=== PATIENT | female | born 1965 | race Caucasian/White ===

== ENCOUNTER 2017-06-28 19:01 | Inpatient (IN) | payer OTHER ==
[~2017-06-28] VITALS: Ht 157.5 cm; Wt 62.6 kg
[2017-06-28] MEDS: NACL 0.9% 1,000 ML IV SCH (01:00)
[2017-06-28 19:08] VITALS: BP 145/80
--- NOTE | 2017-06-28 19:13 | NUR ---
PATIENT AMBULATED TO ER BED 11.
--- NOTE | 2017-06-28 19:15 | NUR ---
PATIENT IS A 51 Y/O FEMALE WHO PRESENTS TO THE ED C/O ABD PAIN. PT STATES THAT IT HAS BEEN BOTHERING HER FOR 1 MONTH. PT REPORTS 10/10 ACHING EPIGASTRIC PAIN THAT DOES NOT RADIATE. PT DENIES CP, SOB, REPORTS N/V/D. PT AAOX4, RR EVEN/UNLABORED, LUNG SOUNDS CLEAR BL. PT REPOSITIONED FOR COMFORT, BED IN LOWEST POSITION. ER MD DR. MANNING NOTIFIED. WILL CONTINUE TO MONITOR.
[2017-06-28] MEDS ORDERED: NACL 0.9% 1,000 ML IV ONE ×2 (20:00→21:10)
[2017-06-28] MEDS ORDERED: LEVOFLOXACIN 500 MG/D5W PREMIX 100 ML IV ONE (20:00)
[2017-06-28] MEDS ORDERED: MORPHINE SULFATE 4 MG/ML SYR IVP ONE (20:00)
[2017-06-28] MEDS ORDERED: ONDANSETRON 4 MG/2 ML VIAL IVP ONE (20:00)
[2017-06-28 20:22] LABS: APPEARANCE,URINE CLEAR (CLEAR); BILIRUBIN,URINE NEGATIVE (NEGATIVE); BLOOD, URINE NEGATIVE (NEGATIVE); COLOR,URINE YELLOW (YELLOW); LEUKOCYTE ESTERASE ,URINE NEGATIVE (NEGATIVE); NITRITE, URINE NEGATIVE (NEGATIVE); PH,URINE 5.5 (5.0-9.0); UGLUCOSE 3+ (NEGATIVE)
[2017-06-28 20:23] LABS: BASOPHILS # (AUTO) 0.1 K/uL (0.00-0.22); BASOPHILS % (AUTO) 0.7 % (0.0-2.0); EOSINOPHILS # (AUTO) 0.1 K/uL (0-0.4); EOSINOPHILS % (AUTO) 0.7 % (0.0-4.0); HEMOGLOBIN 15.6 g/dL (12.0-16.0); LYMPHOCYTES % (AUTO) 25.6 % (20.5-51.1); MEAN CORPUSCULAR HEMOGLOBIN 27 pg (27-31); MEAN CORPUSCULAR HGB CONC 33 g/dL (33-37); MEAN CORPUSCULAR VOLUME 83.2 fL (80-94); MONOCYTES # (AUTO) 0.4 K/uL (0.8-1.0); NEUTROPHILS # (AUTO) 5.3 K/uL (1.8-7.7); PLATELET COUNT (AUTO) 238 K/uL (140-450); RED BLOOD CELL COUNT(AUTO) 5.76 MIL/uL (4.20-5.40); RED CELL DISTRIBUTION WIDTH 13.2 % (11.6-13.7); WHITE BLOOD COUNT (AUTO) 7.8 K/uL (4.8-10.8)
[2017-06-28 20:38] LABS: ALBUMIN 3.5 g/dL (3.4-5.0); ANION GAP 21.2 (8-16); CARBON DIOXIDE 22.1 mmol/L (21-32); CREATININE 0.9 mg/dL (0.6-1.3); POTASSIUM 4.3 mmol/L (3.5-5.1); TOTAL BILIRUBIN 0.7 mg/dL (0.0-1.0)
[2017-06-28] MEDS ORDERED: INSULIN REGULAR, HUMAN 100 UNIT/ML VIAL IVP ONE ×3 (21:10→22:30)
--- NOTE | 2017-06-28 22:47 | NUR ---
SPOKE TO EL FROM [employer] REGARDING PT ADMISSION.
--- NOTE | 2017-06-28 23:37 | NUR ---
CALLED TELE FOR BED-PATIENT ACCOUNT SPECIALIST TESS WILL CALL BACK
[2017-06-28] MEDS ORDERED: DOCUSATE SODIUM 100 MG GELCAP PO PRN (23:40)
[2017-06-28] MEDS ORDERED: ONDANSETRON 4 MG/2 ML VIAL IM/IVP PRN (23:40)
[2017-06-28] MEDS ORDERED: HYDROcodone/APAP 7.5/325 MG 1 TAB PO PRN (23:40)
--- NOTE | 2017-06-28 23:55 | NUR ---
Patient will be admitted to care of DR. TRAN. Admited to TELE. Will go to room 105B. Belongings list completed. Report to [facility].
[2017-06-29 00:05] VITALS: BP 115/71
--- NOTE | 2017-06-29 00:05 | NUR ---
PATIENT ADMITTED TO THE UNIT FROM ER. PATIENT IS AOX4. NO SIGNS AND SYMPTOMS OF DISTRESS NOTED. COMPLAINS OF 5/10 ABDOMINAL PAIN. IV SITE NOTED ON RIGHT AC. PATIENT IS ON ROOM AIR. PLAN OF CARE DISCUSSED WITH PATIENT. PATIENT VERBALIZED UNDERSTANDING. PATIENT REQUESTED INFO ON DIABETIC DIET. EDUCATIONAL HANDOUT GIVEN. BED IN LOWEST POSITION. SIDE RAILS UP AND CALL LIGHT WITHIN REACH. WILL CONTINUE TO MONITOR.
[2017-06-29 00:30] LABS: BENZODIAZEPINE, URINE NEG. ng/mL (NEG <=200); CANNABINOID, URINE NEG. ng/mL (NEG <=50); COCAINE, URINE NEG. ng/mL (NEG <=300); OPIATE, URINE NEG. ng/mL (NEG <=2000); PHENCYCLIDINE SCREEN,URINE NEG. ng/mL (NEG <=25)
[2017-06-29 00:32] LABS: PROTHROMBIN TIME 9.9 secs (10.8-13.4)
[2017-06-29 00:32] LABS: BARBITURATE, URINE NEG. ng/ml (NEG <=200)
[2017-06-29 00:37] LABS: CHOL/HDL RATIO 2.3 (1-4.5); FREE T4 (FREE THYROXINE) 1.34 ng/dL (0.76-1.46); MAGNESIUM 1.9 mg/dL (1.8-2.4); PHOSPHORUS 4.1 mg/dL (2.5-4.9)
--- NOTE | 2017-06-29 01:00 | NUR ---
PATIENT SEEN BY DR. MAX
[2017-06-29] MEDS ORDERED: DEXTROSE 50% 50 ML SYR IVP PRN (01:05)
[2017-06-29] MEDS ORDERED: PNEUMOCOCCAL VACCINE 23 MCG/0.5 ML VIAL IMVAC SCH (01:45)
[2017-06-29] MEDS ORDERED: KETOROLAC 30 MG/ML VIAL IM PRN (01:55)
[2017-06-29] MEDS: KETOROLAC 30 MG/ML VIAL IVP PRN ×3 (02:08→19:58)
--- NOTE | 2017-06-29 03:23 | NUR ---
CHECKED ON PATIENT. PATIENT IS ASLEEP. NO SIGNS AND SYMPTOMS OF DISTRESS NOTED. BREATHING EVEN AND UNLABORED. WILL CONTINUE TO MONITOR.
[2017-06-29 04:00] VITALS: BP 135/78
--- NOTE | 2017-06-29 05:20 | NUR ---
PATIENT GOT XRAYS DONE AT BEDSIDE
[2017-06-29] MEDS: ACETAMINOPHEN 325 MG TAB PO PRN (05:32)
[2017-06-29] MEDS: INSULIN LISPRO SLIDING SCALE 100 UNITS/ML VIAL SUBQ PRN ×4 (05:47→20:12)
[2017-06-29] MEDS: PANTOPRAZOLE 40 MG TABEC PO SCH (05:52)
[2017-06-29] MEDS: NACL 0.9% 1,000 ML IV SCH ×4 (05:55→18:46)
[2017-06-29] MEDS: BLOOD GLUCOSE MONITORING 1 DEV DEV FS SCH ×4 (06:40→20:10)
--- NOTE | 2017-06-29 07:16 | NUR ---
PATIENT REPORT GIVEN TO MORNING NURSE AT BEDSIDE. PATIENT IS IN STABLE CONDITION
--- NOTE | 2017-06-29 07:21 | NUR ---
RECEIVED REPORT FOR THE PT FROM WOODS SUPERINTENDENT NURSE. PT IS AWAKE AND LYING ON THE BED AND AN ULTRASOUND ON GOING. NO SIGN OF DISTRESS NOTED. CALL LIGHT WITHIN REACH, SIDE RAILS ARE UP. WILL MONITOR.
[2017-06-29 07:23] LABS: BASOPHILS % (AUTO) 0.5 % (0.0-2.0); EOSINOPHILS # (AUTO) 0.1 K/uL (0-0.4); EOSINOPHILS % (AUTO) 1.5 % (0.0-4.0); HEMATOCRIT 42.7 % (36-48); HEMOGLOBIN 13.6 g/dL (12.0-16.0); LYMPHOCYTES # (AUTO) 2.6 K/uL (2.5-16.5); LYMPHOCYTES % (AUTO) 29.2 % (20.5-51.1); MEAN CORPUSCULAR HEMOGLOBIN 27 pg (27-31); MEAN CORPUSCULAR HGB CONC 32 g/dL (33-37); MEAN CORPUSCULAR VOLUME 84.3 fL (80-94); MONOCYTES # (AUTO) 0.6 K/uL (0.8-1.0); MONOCYTES % (AUTO) 6.4 % (1.7-9.3); NEUTROPHILS # (AUTO) 5.6 K/uL (1.8-7.7); NEUTROPHILS % (AUTO) 62.4 % (42.2-75.2); PLATELET COUNT (AUTO) 231 K/uL (140-450); RED BLOOD CELL COUNT(AUTO) 5.06 MIL/uL (4.20-5.40); RED CELL DISTRIBUTION WIDTH 13.7 % (11.6-13.7)
--- NOTE | 2017-06-29 07:40 | NUR ---
PT IS AWAKE, LYING ON THE BED, VITAL SIGNS TAKEN, NO SIGN OF DISTRESS NOTED. CALL LIGHT WITHIN REACH. WILL MONITOR.
[2017-06-29 07:47] LABS: ANION GAP 14.8 (8-16); CARBON DIOXIDE 23.8 mmol/L (21-32); CREATININE 0.8 mg/dL (0.6-1.3); POTASSIUM 4.6 mmol/L (3.5-5.1)
[2017-06-29 07:49] LABS: MAGNESIUM 1.6 mg/dL (1.8-2.4); PHOSPHORUS 3.2 mg/dL (2.5-4.9)
[2017-06-29 08:00] VITALS: BP 128/72
--- NOTE | 2017-06-29 08:13 | NUR ---
PT'S MAGNESIUM RESULT OF 1.[address] CAMARILLO AND DR. FLANAGAN, BOTH DOCTORS SAID " OK".
[2017-06-29] MEDS ORDERED: MAG SULF 2000 MG/WATER PREMIX 50 ML IV SCH (09:00)
--- NOTE | 2017-06-29 09:00 | NUR ---
PT"S IV SOLUTION OF 0.9% NACL WAS STARTED WITH A RATE OF 150ML/HR ON THE RIGHT AC. NO SIGN OF DISTRESS NOTED ON THE PT. CALL LIGHT WITHIN REACH. WILL MONITOR.
--- NOTE | 2017-06-29 09:24 | NUR ---
PT WAS ASLEEP AND LYING ON THE BED, STARTED ON MAGNESIUM SULFATE 50ML AT A RATE OF 25ML/HR, ORDERED BY THE DOCTOR FOR A MAGNESIUM VALUE OF 1.6. NO SIGN OF DISTRESS NOTED ON THE PT. WILL MONITOR.
--- NOTE | 2017-06-29 10:05 | NUR ---
RECEIVED ORDER FROM THE DOCTOR TO PUT PT ON NPO EXCEPT MEDS,ORDERED ACKNOWLEDGED AND SIGN WAS PLACED ON THE DOOR OF THE PT'S ROOM. INFORMED PT OF THE ORDER FOR NPO AND PT VERBALIZED ACCEPTANCE OF THE ORDER. NO SIGN OF DISTRESS NOTED ON THE PT, CALL LIGHT WITHIN REACH. MAGNESIUM SULFATE ON IV PIGGYBACK STILL INFUSING. WILL MONITOR.
--- NOTE | 2017-06-29 11:45 | NUR ---
PT IS AWAKE AND LYING ON THE BED, BLOOD GLUCOSE CHECK DONE AND RESULT IS 336. HUMALOG INSULIN OF 8 UNITS GIVEN SUBQ IN THE LEFT UPPER ARM.
--- NOTE | 2017-06-29 11:58 | NUR ---
PT IS AWAKE LYING ON THE BED, PAIN MEDICATION GIVEN FOR A PAIN RATE OF 6. PT TOLERATED IT AND NO SIGN OF DISTRESS NOTED. WILL REASSESS PAIN IN AN HOUR. WILL MONITOR
[2017-06-29 12:00] VITALS: BP 106/67
--- NOTE | 2017-06-29 12:12 | NUR ---
MANAGER SKILLED OPAL CAME AND EXTRACTED BLOOD FROM THE PT FOR THE BMP ORDERED AT 1200. NO SIGN OF DISTRESS NOTED ON THE PT. WILL MONITOR.
[2017-06-29 12:24] LABS: ANION GAP 13.1 (8-16); CARBON DIOXIDE 24.8 mmol/L (21-32); CREATININE 0.7 mg/dL (0.6-1.3); POTASSIUM 3.9 mmol/L (3.5-5.1)
--- NOTE | 2017-06-29 14:10 | NUR ---
PT'S ORDER FOR NPO WAS CANCELLED AND [facility]. ORDER ACKNOWLEDGED.
[2017-06-29] MEDS ORDERED: metFORMIN 500 MG TAB PO SCH (15:00)
--- NOTE | 2017-06-29 15:43 | NUR ---
PT IS AWAKE SEATED ON THE BED, MEDICATIONS GIVEN AND PT TOLERATED IT. NO SIGN OF DISTRESS NOTED. PATIENT TEACHING ON DIABETIC DIET GIVEN. CALL LIGHT WITHIN REACH. WILL MONITOR.
[2017-06-29 16:00] VITALS: BP 116/80
[2017-06-29] MEDS: METOCLOPRAMIDE 10 MG/2 ML INJ VIAL IVP SCH ×2 (18:47→20:10)
--- NOTE | 2017-06-29 19:10 | NUR ---
ENDORSED PT FOR CONTINUITY OF CARE TO BENCH BORING MACHINE OPERATOR NURSE. PT IS AWAKE AND SEATED ON THE BED AND STABLE AT THIS TIME.
--- NOTE | 2017-06-29 19:11 | NUR ---
PATIENT REPORT RECEIVED FROM MORNING NURSE AT BEDSIDE. PATIENT IS CURRENTLY ASLEEP. BUT EASY TO AWAKEN. NO SIGNS AND SYMPTOMS OF DISTRESS NOTED. PATIENT IS ON ROOM AIR. IV SITE NOTED ON RIGHT AC, IVF INFUSING WELL. BED IN LOWEST POSITION, SIDE RAILS UP AND CALL LIGHT WITHIN REACH. WILL CONTINUE TO MONITOR.
[2017-06-29 20:00] VITALS: BP 98/60
[2017-06-29] MEDS ORDERED: INSULIN LANTUS 100 UNITS/ML 10 ML VIAL SUBQ SCH (21:00)
--- NOTE | 2017-06-29 21:00 | NUR ---
REGLAN NOT ADMINISTERED B/C TOO CLOSE TO PREVIOUS DOSE. PREVIOUS DOSE ADMINISTERED LATE.
--- NOTE | 2017-06-29 22:00 | NUR ---
CHECKED ON PATIENT. PATIENT IS ASLEEP. NO SIGNS AND SYMPTOMS OF DISTRESS NOTED. BREATHING EVEN AND UNLABORED. WILL CONTINUE TO MONITOR.
[2017-06-30] VITALS (7 sets, daily range): BP systolic 99–133; BP diastolic 57–76
--- NOTE | 2017-06-30 | NUR ---
CHECKED ON PATIENT. PATIENT IS ASLEEP. NO SIGNS AND SYMPTOMS OF DISTRESS NOTED. BREATHING EVEN AND UNLABORED. WILL CONTINUE TO MONITOR.
[2017-06-30] MEDS: NACL 0.9% 1,000 ML IV SCH ×2 (02:33→16:26)
--- NOTE | 2017-06-30 03:00 | NUR ---
CHECKED ON PATIENT. PATIENT IS ASLEEP. NO SIGNS AND SYMPTOMS OF DISTRESS NOTED. BREATHING EVEN AND UNLABORED. WILL CONTINUE TO MONITOR.
[2017-06-30] MEDS: BLOOD GLUCOSE MONITORING 1 DEV DEV FS SCH ×4 (06:02→20:42)
[2017-06-30] MEDS: INSULIN LISPRO SLIDING SCALE 100 UNITS/ML VIAL SUBQ PRN ×4 (06:08→21:10)
[2017-06-30] MEDS: PANTOPRAZOLE 40 MG TABEC PO SCH (06:36)
[2017-06-30] MEDS: METOCLOPRAMIDE 10 MG/2 ML INJ VIAL IVP SCH ×4 (06:36→20:37)
[2017-06-30 06:40] LABS: BASOPHILS % (AUTO) 0.6 % (0.0-2.0); EOSINOPHILS # (AUTO) 0.1 K/uL (0-0.4); EOSINOPHILS % (AUTO) 2.4 % (0.0-4.0); HEMOGLOBIN 12.3 g/dL (12.0-16.0); LYMPHOCYTES # (AUTO) 2.6 K/uL (2.5-16.5); LYMPHOCYTES % (AUTO) 41.5 % (20.5-51.1); MEAN CORPUSCULAR HEMOGLOBIN 27 pg (27-31); MEAN CORPUSCULAR HGB CONC 33 g/dL (33-37); MEAN CORPUSCULAR VOLUME 82.7 fL (80-94); MONOCYTES # (AUTO) 0.4 K/uL (0.8-1.0); MONOCYTES % (AUTO) 6.7 % (1.7-9.3); NEUTROPHILS % (AUTO) 48.8 % (42.2-75.2); PLATELET COUNT (AUTO) 190 K/uL (140-450); RED CELL DISTRIBUTION WIDTH 13.2 % (11.6-13.7); WHITE BLOOD COUNT (AUTO) 6.2 K/uL (4.8-10.8)
--- NOTE | 2017-06-30 07:12 | NUR ---
PATIENT REPORT GIVEN TO MORNING NURSE AT BEDSIDE. PATIENT IS IN STABLE CONDITION.
--- NOTE | 2017-06-30 07:12 | NUR ---
ASSUMED CONTINUITY OF CARE. NO SIGNS AND SYMPTOMS OF ACUTE DISTRESS NOTICED. INITIAL ASSESSMENT DONE. EXPLAINED DIAGNOSIS, PLAN OF CARE, PAIN MANAGEMENT TEACHING, USE OF CALL LIGHT/BED/TV/BATHROOM. VERBALIZED UNDERSTANDING. CALL LIGHT WITHIN REACH.
[2017-06-30 07:35] LABS: POTASSIUM 3.7 mmol/L (3.5-5.1)
[2017-06-30 07:36] LABS: ANION GAP 11.7 (8-16); CREATININE 0.6 mg/dL (0.6-1.3)
--- NOTE | 2017-06-30 08:55 | NUR ---
FAXED INITIAL REVIEW TO [facility] [phone] X [phone] FAX [phone]
[2017-06-30] MEDS ORDERED: INSULIN LANTUS 100 UNITS/ML 10 ML VIAL SUBQ SCH (09:00)
[2017-06-30] MEDS: metFORMIN 500 MG TAB PO SCH ×2 (09:05→16:37)
[2017-06-30] MEDS: ATORVASTATIN 20 MG TAB PO SCH (09:27)
[2017-06-30] MEDS: ASPIRIN 81 MG TAB.CHEW PO SCH (09:27)
--- NOTE | 2017-06-30 11:22 | NUR ---
PATIENT HAS BEEN SCREENED AND CATEGORIZED HIGH NUTRITION RISK. PATIENT WILL BE SEEN WITHIN 1-2 DAYS OF ADMISSION. 06/29/17 - 06/30/[address]
[2017-06-30 15:13] LABS: HEPATITIS A ANTIBODY IGM Negative (Negative); HEPATITIS B CORE AB TOTAL Negative (Negative); HEPATITIS B SURFACE ANTIBODY Non Reactive (.); HEPATITIS B SURFACE ANTIGEN Negative (Negative)
--- NOTE | 2017-06-30 16:00 | NUR ---
VITALS SIGNS STABLE. NO C/O PAIN. CONTINUE MONITORING. CALL LIGHT WITHIN REACH.
--- NOTE | 2017-06-30 16:18 | NUR ---
06/30/17 RD INITIAL ASSESSMENT COMPLETED PLEASE REFER TO NUTRITION ASSESSMENT UNDER CARE ACTIVITY FOR ESTIMATED NUTRITIONAL NEEDS. 1. CONTINUE CCHO 60 GM DIET TOLERATED 2. PROVIDED DIABETES NUTRITION EDUCATION TO PT 3. RD TO FOLLOW-UP 3-5 DAYS, MODERATE RISK JAREK WILSON RD
--- NOTE | 2017-06-30 19:11 | NUR ---
BEDSIDE REPORT GIVEN TO DAVID COTTER -CUCO. IVF INFUSING WELL. IN STABLE CONDITION.
--- NOTE | 2017-06-30 19:30 | NUR ---
RECEIVED PT IN STABLE CONDITION FROM AM NURSE. AWAKE,ALERT AND ORIENTED X4. ON TELE MONITOR. AMBULATORY. WITH NO C/O ANY DISCOMFORT NOR PAIN NOTED. HAS IVF INFUSING WELL ON THE L RT AC G#20. CLEAR AND PATENT. PT MADE AWARE THE NEED FOR STOOL SPECIMEN . VERBALIZED UNDERSTANDING. BED PLACED IN LOW POSITION. CALL LIGHT WITHIN EASY REACH. WILL CONTINUE TO MONITOR.
--- NOTE | 2017-06-30 21:10 | NUR ---
BLOOD SUGAR WAS CHECKED RESULT 362. INSULIN COVERAGE SUBQ GIVEN. SNACK PROVIDED. WILL CONTINUE TO MONITOR.
--- NOTE | 2017-06-30 22:50 | NUR ---
STOOL SPECIMEN COLLECTED FOR WBC,OVA AND PARASITE AND C/S. SEND TO LAB.
--- NOTE | 2017-07-01 00:30 | NUR ---
V/S STABLE. NO C/O ANY DISCOMFORT NOTED. WILL CONTINUE TO MONITOR.
--- NOTE | 2017-07-01 00:50 | NUR ---
MADE ROUNDS. PT ASLEEP. NO S/S OF ANY DISTRESS NOR DISCOMFORT NOTED. WILL CONTINUE TO MONITOR.
--- NOTE | 2017-07-01 03:00 | NUR ---
MADE ROUNDS. SLEEPING WELL. NO S/S OF ANY DISCOMFORT NOR PAIN NOTED. WILL CONTINUE TO MONITOR.
[2017-07-01 04:00] VITALS: BP 123/71
[2017-07-01] MEDS: PANTOPRAZOLE 40 MG TABEC PO SCH (05:44)
[2017-07-01] MEDS: BLOOD GLUCOSE MONITORING 1 DEV DEV FS SCH ×4 (06:07→20:49)
[2017-07-01 06:08] LABS: T4 (THYROXINE) 12.6 ug/dL (4.5-12.0)
[2017-07-01] MEDS: INSULIN LISPRO SLIDING SCALE 100 UNITS/ML VIAL SUBQ PRN ×4 (06:10→20:55)
--- NOTE | 2017-07-01 06:10 | NUR ---
BLOOD SUGAR WAS CHECKED RESULT 219. INSULIN COVERAGE GIVEN.
[2017-07-01] MEDS: METOCLOPRAMIDE 10 MG/2 ML INJ VIAL IVP SCH ×4 (06:31→20:49)
--- NOTE | 2017-07-01 07:15 | NUR ---
ENDORSED PT IN STABLE CONDITION TO AM NURSE.
--- NOTE | 2017-07-01 07:30 | NUR ---
RECEIVED PT ON BED AAOX4. NO SOB NOTED. NO C/O PAIN AT THIS TIME. IV TO RT AC PATENT AND INTACT. CHEST CLEAR. ABDOMEN SOFT, BOWEL SOUNDS. NO EDEMA NOTED. INSTRUCTED PT TO CALL FOR ASSISTANCE, CALL LIGHT WITHIN REACH. PT VERBALIZED UNDERSTANDING.
[2017-07-01 07:58] VITALS: BP 109/76
[2017-07-01] MEDS: metFORMIN 500 MG TAB PO SCH ×2 (09:23→17:37)
[2017-07-01] MEDS: ASPIRIN 81 MG TAB.CHEW PO SCH (09:23)
[2017-07-01] MEDS: ATORVASTATIN 20 MG TAB PO SCH (09:23)
[2017-07-01] MEDS: INSULIN LANTUS 100 UNITS/ML 10 ML VIAL SUBQ SCH (09:26)
--- NOTE | 2017-07-01 11:30 | NUR ---
TEACHINGS ON HOW TO DO BLOOD SUGAR CHECKS GIVEN TO PT, VERBALIZED UNDERSTANDING. PT STATED SHE WILL BE THE ONE TO GET HER BLOOD SUGAR AROUND 1630 TODAY.
[2017-07-01 12:00] VITALS: BP 118/76
--- NOTE | 2017-07-01 14:08 | NUR ---
CONCURRENT REVIEW, PROGRESS NOTE, MED LIST,ETC FAXED TO [facility] [phone] PHONE [phone] X [phone] [facility]
--- NOTE | 2017-07-01 14:30 | NUR ---
INFORMATIONS REGARDING DIABETES PRINTED OUT, GIVEN AND SIGNED BY PT, VERBALIZED UNDERSTANDING. INSTRUCTIONS GIVEN TO PT ON HOW TO GIVE HERSELF SUBCUTANEOUS INJECTION OF INSULIN. PT DID A RETURN DEMONSTRATION BY THE USE OF FRUIT (APPLE) AND STATED SHE IS COMFORTABLE TO GIVE HERSELF INSULIN INJECTIONS.
[2017-07-01 16:00] VITALS: BP 124/74
--- NOTE | 2017-07-01 17:00 | NUR ---
SCHEDULED BLOOD SUGAR CHECK DONE BY PT WITH SUPERVISION. PT VERBALIZED UNDERSTANDING AND STATED SHE IS COMFORTABLE IN CHECKING HER SUGARS AT HOME IF THE DOCTOR WILL PROVIDE HER WITH THE GLUCOSE MACHINE.
--- NOTE | 2017-07-01 17:40 | NUR ---
PT WAS ABLE TO GIVE HERSELF THE INSULIN COVERAGE (WITH SUPERVISION) THAT IS DUE BEFORE DINNER TODAY.
--- NOTE | 2017-07-01 19:09 | NUR ---
PT AWAKE, WATCHING TV. NO SOB NOTED. NO COMPLAINTS MADE AT THIS TIME. WILL ENDORSE TO NEXT SHIFT NURSE FOR CONTINUITY OF CARE.
--- NOTE | 2017-07-01 19:10 | NUR ---
RECEIVED REPORT AT PT BEDSIDE FROM DAY SHIFT RN, FOR CONTINUITY OF CARE. PATIENT IS AWAKE, A/OX4 ON ROOM AIR. ABLE TO MAKE NEEDS KNOWN, ABLE TO FOLLOW COMMANDS. PT SKIN INTACT, WARM AND DRY. PATIENT HAS PERIPHERAL IV SITE TO RIGHT AC 20G ASYMPTOMATIC, INTACT, PATENT. RESPIRATIONS EVEN AND UNLABORED. UPDATED BOARD. DISCUSSED PLAN OF CARE WITH PT, PT VERBALIZED UNDERSTANDING. VITAL SIGNS WNL. PT STABLE, NO SIGNS OF DISTRESS NOTED AT THIS TIME. BED IN LOWEST POSITION, CALL LIGHT WITHIN REACH. WILL CONTINUE TO MONITOR.
[2017-07-01] MEDS: ACETAMINOPHEN 325 MG TAB PO PRN (19:43)
[2017-07-01 19:50] VITALS: BP 113/70
--- NOTE | 2017-07-01 21:29 | NUR ---
ADMINISTERED SCHEDULED MEDICATIONS AND HUMALOG INSULIN COVERAGE FOR BLOOD SUGAR 323, PT TOLERATED WELL. ENCOURAGED PT TO ADMINISTER INSULIN HERSELF AND PT DID NOT WANT TO SHE SAID SHE ALREADY KNEW HOW AND DIDN'T NEED THE PRACTICE.
--- NOTE | 2017-07-01 21:50 | NUR ---
COVERED PATIENT'S IV AND REMOVED TELE MONITOR SO PT CAN TAKE A SHOWER.
--- NOTE | 2017-07-01 22:30 | NUR ---
PT BACK IN BED, STABLE WITH TELE MONITOR BACK ON.
[2017-07-02] VITALS: BP 105/59
--- NOTE | 2017-07-02 | NUR ---
RECEIVED REPORT AT PT BEDSIDE FROM DAY SHIFT RN, FOR CONTINUITY OF CARE. PATIENT IS AWAKE, A/OX4 ON ROOM AIR, [place] SPEAKING. ABLE TO MAKE NEEDS KNOWN, ABLE TO FOLLOW COMMANDS. PT SKIN INTACT, WARM AND DRY. PATIENT HAS PERIPHERAL IV SITE TO RIGHT AC 20G, AND A LEFT AC 18G IV, BOTH ASYMPTOMATIC, INTACT, PATENT. RESPIRATIONS EVEN AND UNLABORED. UPDATED BOARD. DISCUSSED PLAN OF CARE WITH PT, PT VERBALIZED UNDERSTANDING. VITAL SIGNS WNL. PT STABLE, NO SIGNS OF DISTRESS NOTED AT THIS TIME. BED IN LOWEST POSITION, CALL LIGHT WITHIN REACH. WILL CONTINUE TO MONITOR. Addendum: 07/02/17 at 0105 by Kiana Hatch RN WRONG NOTE PLEASE DISREGARD.
--- NOTE | 2017-07-02 | NUR ---
VITAL SIGNS WNL. PT STABLE, NO SIGNS OF DISTRESS NOTED AT THIS TIME. BED IN LOWEST POSITION, CALL LIGHT WITHIN REACH. WILL CONTINUE TO MONITOR.
[2017-07-02] MEDS: NACL 0.9% 1,000 ML IV SCH (02:20)
[2017-07-02 04:00] VITALS: BP 98/61
--- NOTE | 2017-07-02 04:00 | NUR ---
VITAL SIGNS WNL. PT STABLE, NO SIGNS OF DISTRESS NOTED AT THIS TIME. BED IN LOWEST POSITION, CALL LIGHT WITHIN REACH. WILL CONTINUE TO MONITOR.
[2017-07-02 06:36] LABS: BASOPHILS # (AUTO) 0.1 K/uL (0.00-0.22); EOSINOPHILS # (AUTO) 0.1 K/uL (0-0.4); EOSINOPHILS % (AUTO) 3.1 % (0.0-4.0); HEMATOCRIT 40.2 % (36-48); LYMPHOCYTES # (AUTO) 1.9 K/uL (2.5-16.5); LYMPHOCYTES % (AUTO) 39.9 % (20.5-51.1); MEAN CORPUSCULAR HEMOGLOBIN 27 pg (27-31); MEAN CORPUSCULAR HGB CONC 32 g/dL (33-37); MEAN CORPUSCULAR VOLUME 83.8 fL (80-94); MONOCYTES # (AUTO) 0.4 K/uL (0.8-1.0); MONOCYTES % (AUTO) 8.1 % (1.7-9.3); NEUTROPHILS # (AUTO) 2.2 K/uL (1.8-7.7); NEUTROPHILS % (AUTO) 46.9 % (42.2-75.2); PLATELET COUNT (AUTO) 230 K/uL (140-450); RED CELL DISTRIBUTION WIDTH 13.4 % (11.6-13.7); WHITE BLOOD COUNT (AUTO) 4.7 K/uL (4.8-10.8)
[2017-07-02] MEDS: PANTOPRAZOLE 40 MG TABEC PO SCH (06:38)
[2017-07-02] MEDS: METOCLOPRAMIDE 10 MG/2 ML INJ VIAL IVP SCH ×4 (06:38→21:22)
[2017-07-02] MEDS: BLOOD GLUCOSE MONITORING 1 DEV DEV FS SCH ×4 (06:38→21:28)
--- NOTE | 2017-07-02 06:40 | NUR ---
ADMINISTERED SCHEDULED MEDICATIONS, PT TOLERATED WELL. PT STABLE, NO SIGNS OF DISTRESS NOTED AT THIS TIME. BED IN LOWEST POSITION, CALL LIGHT WITHIN REACH. WILL CONTINUE TO MONITOR.
[2017-07-02] MEDS: INSULIN LISPRO SLIDING SCALE 100 UNITS/ML VIAL SUBQ PRN ×4 (06:42→21:34)
[2017-07-02 06:59] LABS: ANION GAP 9.3 (8-16); CARBON DIOXIDE 32.6 mmol/L (21-32); CREATININE 0.6 mg/dL (0.6-1.3); POTASSIUM 3.9 mmol/L (3.5-5.1)
[2017-07-02 07:04] LABS: MAGNESIUM 1.5 mg/dL (1.8-2.4); PHOSPHORUS 4.6 mg/dL (2.5-4.9)
--- NOTE | 2017-07-02 07:24 | NUR ---
ENDORSED PT TO DAY SHIFT RN FOR CONTINUITY OF CARE. PT IN STABLE CONDITION.
--- NOTE | 2017-07-02 07:29 | NUR ---
PER FAX FROM [employer], PT HAS BEEN APPROVED 06/[address] TIL 07/05/17. NO NEED TO FAX DAILY REVIEWS.
--- NOTE | 2017-07-02 07:30 | NUR ---
RECEIVED REPORT AT PT BEDSIDE FROM BELT LACER RN. PATIENT IS SLEEPING, EASILY AROUSED, OX4. NO S/S OF ACUTE DISTRESS ON ROOM AIR. IV CATH NOTED TO RIGHT AC 20G, ASYMPTOMATIC, INTACT, PATENT. UPDATED BOARD. DISCUSSED PLAN OF CARE WITH PT, PT VERBALIZED UNDERSTANDING. VITAL SIGNS TAKEN. BED IN LOWEST POSITION, CALL LIGHT WITHIN REACH. WILL CONTINUE TO MONITOR.
[2017-07-02 08:00] VITALS: BP 98/55
[2017-07-02] MEDS: ASPIRIN 81 MG TAB.CHEW PO SCH (08:19)
[2017-07-02] MEDS: metFORMIN 850 MG TAB PO SCH ×3 (08:19→17:10)
[2017-07-02] MEDS: ATORVASTATIN 20 MG TAB PO SCH (08:19)
[2017-07-02] MEDS: INSULIN LANTUS 100 UNITS/ML 10 ML VIAL SUBQ SCH (08:24)
[2017-07-02] MEDS ORDERED: ASPI81CT95 PO (11:27)
[2017-07-02] MEDS ORDERED: LANTUS SUBQ (11:27)
[2017-07-02] MEDS ORDERED: ATOR20TA40 PO (11:27)
[2017-07-02] MEDS ORDERED: HUMSLIDE SUBQ (11:27)
[2017-07-02] MEDS ORDERED: METF850T PO (11:27)
[2017-07-02] MEDS ORDERED: GLUC-805 FS (11:27)
[2017-07-02 12:00] VITALS: BP 109/69
[2017-07-02] MEDS ORDERED: MAGNESIUM OXIDE 400 MG TAB PO SCH (12:00)
[2017-07-02] MEDS ORDERED: MAG SULF 2000 MG/WATER PREMIX 50 ML IV SCH (12:00)
--- NOTE | 2017-07-02 12:00 | NUR ---
TEACHING ABOUT S/S OF HYPERGLYCEMIA GIVEN. PT VERBALIZED UNDERSTANDING.
[2017-07-02 16:00] VITALS: BP 94/67
--- NOTE | 2017-07-02 16:20 | NUR ---
PT AMB IN HALLWAY, GAIT STEADY, NO S/S OF ACUTE DISTRESS.
[2017-07-02] MEDS ORDERED: INSULIN LISPRO 100 UNITS/ML VIAL SUBQ SCH (17:00)
[2017-07-02] MEDS ORDERED: INSULIN REGULAR, HUMAN 100 UNIT/ML VIAL SUBQ ONE (17:00)
[2017-07-02] MEDS ORDERED: INSULIN REGULAR, HUMAN 100 UNIT/ML VIAL SUBQ SCH (17:00)
[2017-07-02] MEDS: ACETAMINOPHEN 325 MG TAB PO PRN (18:48)
--- NOTE | 2017-07-02 19:33 | NUR ---
ENDORSED PT TO ENVIRONMENTAL HEALTH AND SAFETY MANAGER RN. PT IN STABLE CONDITION.
--- NOTE | 2017-07-02 19:35 | NUR ---
RECEIVED REPORT FROM DAY SHIFT NURSE JESSICA-RN. PT RESTING IN BED. AOX4, ON ROOM AIR WITH IV RIGHT AC #20G. DISCUSSED PLAN OF CARE, PT VERBALIZED UNDERSTANDING. WHITE BOARD UPDATED. BED IN LOWEST POSITION, BED BREAKS LOCKED. BED SIDE TABLE AND CALL LIGHT WITHIN LIGHT. NO S/S OF RESPIRATORY DISTRESS OR DISCOMFORT NOTED AT THIS TIME. WILL CONTINUE TO MONITOR.
[2017-07-02 20:00] VITALS: BP 97/59
--- NOTE | 2017-07-02 21:30 | NUR ---
BLOOD GLUCOSE 248. 4 UNITS OF HUMALOG GIVEN PER SLIDING SCALE. PT TOLERATED WELL. EDUCATED PT ON HOW SLIDING SCALE WORKS. PT VERBALIZED UNDERSTANDING. PT ASKED WHAT BLOOD GLUCOSE LEVELS WERE EARLIER TODAY. INFORMATION GIVEN AND SHE WROTE IT DOWN ON A PIECE OF PAPER. WILL CONTINUE TO MONITOR.
--- NOTE | 2017-07-02 23:30 | NUR ---
PT C/O TOOTH ACHE AND WANTING TYLENOL. WILL CONTINUE TO MONITOR.
[2017-07-03] VITALS: BP 97/54
--- NOTE | 2017-07-03 | NUR ---
VITAL SIGNS TAKEN AND TOLERATED WELL. PT CONTINUES TO MONITOR.
[2017-07-03] MEDS: ACETAMINOPHEN 325 MG TAB PO PRN (01:12)
--- NOTE | 2017-07-03 01:15 | NUR ---
TYLENOL GIVEN FOR TOOTH PAIN. TOLERATED WELL. PT CONTINUES TO SLEEP. WILL CONTINUE TO MONITOR.
[2017-07-03] MEDS: NACL 0.9% 1,000 ML IV SCH (02:20)
--- NOTE | 2017-07-03 03:16 | NUR ---
PT CONTINUES TO SLEEP. WILL CONTINUE TO MONITOR.
[2017-07-03 04:00] VITALS: BP 89/51
--- NOTE | 2017-07-03 04:00 | NUR ---
VITAL SIGNS TAKEN AND WELL TOLERATED. WILL CONTINUE TO MONITOR.
[2017-07-03] MEDS: PANTOPRAZOLE 40 MG TABEC PO SCH (05:54)
--- NOTE | 2017-07-03 06:00 | NUR ---
SCHEDULED MEDICATION GIVEN AND TOLERATED WELL. PT CONTINUES TO SLEEP. WILL CONTINUE TO MONITOR.
[2017-07-03] MEDS: BLOOD GLUCOSE MONITORING 1 DEV DEV FS SCH (06:23)
[2017-07-03 06:26] LABS: BASOPHILS % (AUTO) 0.7 % (0.0-2.0); EOSINOPHILS # (AUTO) 0.1 K/uL (0-0.4); EOSINOPHILS % (AUTO) 2.4 % (0.0-4.0); HEMATOCRIT 41.4 % (36-48); HEMOGLOBIN 13.5 g/dL (12.0-16.0); LYMPHOCYTES # (AUTO) 2.3 K/uL (2.5-16.5); LYMPHOCYTES % (AUTO) 39.5 % (20.5-51.1); MEAN CORPUSCULAR HEMOGLOBIN 27 pg (27-31); MEAN CORPUSCULAR HGB CONC 33 g/dL (33-37); MEAN CORPUSCULAR VOLUME 84.2 fL (80-94); MONOCYTES # (AUTO) 0.4 K/uL (0.8-1.0); MONOCYTES % (AUTO) 6.8 % (1.7-9.3); NEUTROPHILS # (AUTO) 2.9 K/uL (1.8-7.7); NEUTROPHILS % (AUTO) 50.6 % (42.2-75.2); PLATELET COUNT (AUTO) 254 K/uL (140-450); RED BLOOD CELL COUNT(AUTO) 4.92 MIL/uL (4.20-5.40); RED CELL DISTRIBUTION WIDTH 13.4 % (11.6-13.7); WHITE BLOOD COUNT (AUTO) 5.7 K/uL (4.8-10.8)
[2017-07-03 06:30] LABS: ANION GAP 9.7 (8-16); CARBON DIOXIDE 30.7 mmol/L (21-32); CREATININE 0.7 mg/dL (0.6-1.3); POTASSIUM 4.4 mmol/L (3.5-5.1)
[2017-07-03 06:33] LABS: MAGNESIUM 1.8 mg/dL (1.8-2.4); PHOSPHORUS 4.3 mg/dL (2.5-4.9)
[2017-07-03] MEDS: METOCLOPRAMIDE 10 MG/2 ML INJ VIAL IVP SCH (06:33)
[2017-07-03] MEDS: INSULIN LISPRO SLIDING SCALE 100 UNITS/ML VIAL SUBQ PRN (06:39)
--- NOTE | 2017-07-03 07:06 | NUR ---
ENDORSED PT CARE TO DAY SHIFT NURSE LAYLA FOR CONTINUITY OF CARE. PT STABLE AT THIS TIME.
--- NOTE | 2017-07-03 07:07 | NUR ---
RECEIVED REPORT FROM FITNESS CONSULTANT NURSE BRADY AT BEDSIDE FOR CONTINUITY OF CARE. PT IS AWAKE AND ORIENTED X4. INTRODUCED SELF AND UPDATED BOARD. IV TO R AC 20G INTACT. SKIN WARM AND DRY. LUNG SOUNDS CLEAR ON AUSCULTATION. NO S/SX OF HYPERGLYCEMIA. PT DENIES PAIN. NO SIGNS OF DISTRESS. PT IS SITTING UP IN BED EATING BREAKFAST AND TALKING WITH ROOMMATE. BED IN LOW POSITION, WHEELS LOCKED, CALL LIGHT WITHIN REACH. WILL CONTINUE TO MONITOR.
[2017-07-03] MEDS ORDERED: MAG SULF 2000 MG/WATER PREMIX 50 ML IV SCH (07:30)
[2017-07-03 08:00] VITALS: BP 100/70
[2017-07-03] MEDS ORDERED: INSULIN NPH HUMAN ISOPHANE 100 UNIT/ML VIAL SUBQ SCH (08:00)
[2017-07-03] MEDS ORDERED: MAGNESIUM OXIDE 400 MG TAB PO SCH (09:00)
[2017-07-03] MEDS ORDERED: INSULIN LANTUS 100 UNITS/ML 10 ML VIAL SUBQ SCH ×2 (09:00→09:06)
[2017-07-03] MEDS: ATORVASTATIN 20 MG TAB PO SCH (09:09)
[2017-07-03] MEDS: ASPIRIN 81 MG TAB.CHEW PO SCH (09:09)
[2017-07-03] MEDS: metFORMIN 850 MG TAB PO SCH (09:09)
--- NOTE | 2017-07-03 11:03 | NUR ---
ADMINISTERED PNA VACCINE TO R DELTOID. PT TOLERATED WELL. AWARE FOR D/C TODAY. PT SITTING UP IN CHAIR NO SIGNS OF DISTRESS. TALKING WITH ROOMMATE. WILL CONTINUE TO MONITOR.
--- NOTE | 2017-07-03 12:56 | NUR ---
PT D/C TO GO HOME. GAVE D/C FORMS, INSTRUCTIONS, RX, HANDOUTS, LABS, AND FOLLOW UP APPOINTMENT. PT VERBALIZED UNDERSTANDING AND SIGNED FORMS. REMOVED IV TO R HAND 22G. IV CATHETER TIP INTACT. APPLIED DRESSING AND PRESSURE TO SITE. NO BLEEDING NOTE. REMOVED TELE MONITOR AND ID BAND. PT CHANGED IN OWN CLOTHES AND LEFT WITH ALL PERSONAL BELONGINGS. LEFT IN STABLE CONDITION.
== END 2017-07-03 13:30 | disposition home or self-care (01) | DRG 48 ==
LOC: MED 19:01 → MTU 23:33
PROVIDERS: ADMIT Family Medicine; ATTEND Family Medicine
PROC: 3E0234Z Introduction of Serum, Toxoid and Vaccine into Muscle, Percutaneous Approach (ICD-10-PCS; principal; 2017-07-03)
DX: E11.43 Type 2 diabetes mellitus with diabetic autonomic (poly)neuropathy (principal); D68.59 Other primary thrombophilia; E11.51 Type 2 diabetes mellitus with diabetic peripheral angiopathy without gangrene; E11.69 Type 2 diabetes mellitus with other specified complication; E11.65 Type 2 diabetes mellitus with hyperglycemia; E11.00 Type 2 diabetes mellitus with hyperosmolarity without nonketotic hyperglycemic-hyperosmolar coma (NKHHC); E87.8 Other disorders of electrolyte and fluid balance, not elsewhere classified; E83.42 Hypomagnesemia; K31.84 Gastroparesis; A09 Infectious gastroenteritis and colitis, unspecified; E87.1 Hypo-osmolality and hyponatremia; M79.671 Pain in right foot; E86.0 Dehydration; I70.209 Unspecified atherosclerosis of native arteries of extremities, unspecified extremity; R74.0 Nonspecific elevation of levels of transaminase and lactic acid dehydrogenase [LDH]; R31.9 Hematuria, unspecified; I10 Essential (primary) hypertension; Z23 Encounter for immunization; Z86.32 Personal history of gestational diabetes; Z98.891 History of uterine scar from previous surgery; Z87.891 Personal history of nicotine dependence; Z86.19 Personal history of other infectious and parasitic diseases
CPT/HCPCS: 36415; 36600; 71045; 73630; 74018; 76705; 80048; 80053; 80305; 81003; 82009; 82150; 82803; 82948; 83036; 83690; 83735; 83880; 84100; 84436; 84439; 84443; 84479; 85025; 85610; 85730; 86704; 86706; 86708; 86709; 86803; 87045; 87081; 87177; 87340; 89055; 90732; 93005; 93925; 93970; 96361; 96365; 96375; 99285; J1815; J1885; J1956; J2270; J2405; J2765; J3475; J7030; Q0092

== ENCOUNTER 2019-02-17 15:58 | Emergency (ER) | payer OTHER ==
[~2019-02-17] VITALS: Ht 157.5 cm; Wt 67.6 kg
[~2019-02-17 15:58] MED LIST: ASPI81CT95 PO; ATOR20TA40 PO; GLUC-805 FS; HUMSLIDE SUBQ; LANTUS SUBQ; METF850T PO
[2019-02-17 16:08] VITALS: BP 124/73
--- NOTE | 2019-02-17 16:10 | NUR ---
Patient ambulated to bed 12. RN evaluating patient at bedside.
--- NOTE | 2019-02-17 16:25 | NUR ---
PA AT THE BEDSIDE ASSESSING THE PT.
[2019-02-17] MEDS ORDERED: NACL 0.9% 1,000 ML IV ONE ×2 (16:30→17:50)
--- NOTE | 2019-02-17 16:30 | NUR ---
C/O GENERAL BODY ACHES, HEADACHE, FREQUENT URINATION, THIRST & HUNGER X 1 WEEK. DENIES DYSURIA. PT STATES SHE WAS SEEN AT URGENT CARE TODAY AND REFERRED TO THE ER FOR HYPERGLYCEMIA. FSBS ON ARRIVAL TO ED 594. PT STATED SHE IS DIABETIC BUT SHE HAD NOT TAKEN INSULIN IN OVER A YEAR DUE TO MOVING AND NOT FINDING A NEW PCP. BED IN LOW POSITION, SIDE RAIL UP X1. PT PLACED IN GOWN AND GIVEN A CUP TO PROVIDE URINE SAMPLE. PT PLACED ON BEDSIDE ROADING ENGINEER AT THIS TIME.
[2019-02-17 16:55] LABS: BASOPHILS % (AUTO) 0.5 % (0.0-2.0); EOSINOPHILS % (AUTO) 0.5 % (0.0-4.0); HEMATOCRIT 47.8 % (36-48); HEMOGLOBIN 15.7 g/dL (12.0-16.0); LYMPHOCYTES # (AUTO) 1.7 K/uL (2.5-16.5); LYMPHOCYTES % (AUTO) 21.3 % (20.5-51.1); MEAN CORPUSCULAR HEMOGLOBIN 27 pg (27-31); MEAN CORPUSCULAR HGB CONC 33 g/dL (33-37); MONOCYTES # (AUTO) 0.3 K/uL (0.8-1.0); MONOCYTES % (AUTO) 4.4 % (1.7-9.3); NEUTROPHILS # (AUTO) 5.7 K/uL (1.8-7.7); NEUTROPHILS % (AUTO) 73.3 % (42.2-75.2); PLATELET COUNT (AUTO) 224 K/uL (140-450); RED BLOOD CELL COUNT(AUTO) 5.76 MIL/uL (4.20-5.40); RED CELL DISTRIBUTION WIDTH 12.7 % (11.6-13.7); WHITE BLOOD COUNT (AUTO) 7.8 K/uL (4.8-10.8)
--- NOTE | 2019-02-17 16:57 | NUR ---
X-RAY AT THE BEDSIDE.
[2019-02-17 17:26] LABS: ALBUMIN 3.4 g/dL (3.4-5.0); ANION GAP 11.4 (8-16); CARBON DIOXIDE 29.4 mmol/L (21-32); CREATININE 1.3 mg/dL (0.6-1.3); POTASSIUM 4.8 mmol/L (3.5-5.1); TOTAL BILIRUBIN 0.5 mg/dL (0.0-1.0)
--- NOTE | 2019-02-17 17:50 | NUR ---
CAHNGED THE IVF TO BOLUS PER PA THONY ORDER. PT STABLE AT THIS TIME. MACKENZIEILL CONTINUE TO MONTIOR PT.
[2019-02-17 18:11] LABS: APPEARANCE,URINE CLEAR (CLEAR); BILIRUBIN,URINE NEGATIVE (NEGATIVE); BLOOD, URINE NEGATIVE (NEGATIVE); COLOR,URINE YELLOW (YELLOW); LEUKOCYTE ESTERASE ,URINE NEGATIVE (NEGATIVE); NITRITE, URINE NEGATIVE (NEGATIVE); UGLUCOSE 3+ (NEGATIVE)
--- NOTE | 2019-02-17 18:36 | NUR ---
IVF STILL INFUSING. PER AYO BHANDARI, TO RECHECK BS ONCE 1.5 L OF IVF IS INFUSED. IVF INFUSING WELL.
[2019-02-17] MEDS ORDERED: INSULIN REGULAR, HUMAN 100 UNIT/ML VIAL IVP ONE (18:50)
[2019-02-17] MEDS ORDERED: INSULIN LISPRO 100 UNITS/ML VIAL SUBQ ONE (19:10)
--- NOTE | 2019-02-17 19:18 | NUR ---
REPORT GIVEN TO [facility] DARDEN. PT DANIEL.
--- NOTE | 2019-02-17 19:19 | NUR ---
REPORT GIVEN TO [facility] DARDEN. PT DANIEL.
[2019-02-17 19:57] VITALS: BP 130/72
--- NOTE | 2019-02-17 19:57 | NUR ---
PT DISCHARGED WITH PAPERWORK. EDUCATED PT REGARDING MEDICATION AND D/C DIAGNOSIS. PT VERBALIZED UNDERSTANDING. TOLD PT TO FOLLOW UP WITH PCP AND WHEN TO RETURN TO ED. PT AT STABLE CONDITION. ALL QUESTIONS ANSWERED.
== END 2019-02-17 19:57 | disposition home or self-care (01) ==
LOC: MED 15:58
DX: E11.65 Type 2 diabetes mellitus with hyperglycemia (principal); I10 Essential (primary) hypertension; Z79.4 Long term (current) use of insulin; Z79.82 Long term (current) use of aspirin; Z79.899 Other long term (current) drug therapy
CPT/HCPCS: 36415; 71045; 80053; 81003; 82948; 84484; 85025; 93005; 96360; 96361; 96372; 99284; J1815; Q0092

== ENCOUNTER 2020-01-25 21:49 | Emergency (ER) | payer OTHER ==
[~2020-01-25] VITALS: Ht 157.5 cm; Wt 59.0 kg
[~2020-01-25 21:49] MED LIST changes: -ASPI81CT95 PO; -ATOR20TA40 PO; +CEPH250C16 PO; -GLUC-805 FS; -HUMSLIDE SUBQ; +INSU100S22 SUBQ; -LANTUS SUBQ; +METF1000 PO; -METF850T PO
[2020-01-25 21:50] VITALS: BP 140/92
--- NOTE | 2020-01-25 22:11 | NUR ---
PT TAKEN TO BED 6
[2020-01-25] MEDS ORDERED: NACL 0.9% 2,000 ML IV ONE (22:35)
[2020-01-25 22:47] LABS: BASOPHILS # (AUTO) 0.1 K/uL (0.00-0.22); BASOPHILS % (AUTO) 0.7 % (0.0-2.0); EOSINOPHILS # (AUTO) 0.1 K/uL (0-0.4); EOSINOPHILS % (AUTO) 0.9 % (0.0-4.0); HEMATOCRIT 49.5 % (36-48); HEMOGLOBIN 16.2 g/dL (12.0-16.0); LYMPHOCYTES # (AUTO) 2.5 K/uL (2.5-16.5); LYMPHOCYTES % (AUTO) 33.1 % (20.5-51.1); MEAN CORPUSCULAR HEMOGLOBIN 27 pg (27-31); MEAN CORPUSCULAR HGB CONC 33 g/dL (33-37); MEAN CORPUSCULAR VOLUME 82.3 fL (80-94); MONOCYTES # (AUTO) 0.4 K/uL (0.8-1.0); MONOCYTES % (AUTO) 5.2 % (1.7-9.3); NEUTROPHILS # (AUTO) 4.6 K/uL (1.8-7.7); NEUTROPHILS % (AUTO) 60.1 % (42.2-75.2); PLATELET COUNT (AUTO) 244 K/uL (140-450); RED BLOOD CELL COUNT(AUTO) 6.01 MIL/uL (4.20-5.40); RED CELL DISTRIBUTION WIDTH 12.5 % (11.6-13.7); WHITE BLOOD COUNT (AUTO) 7.7 K/uL (4.8-10.8)
[2020-01-25 23:12] LABS: ALBUMIN 3.6 g/dL (3.4-5.0); ANION GAP 13.2 (8-16); CARBON DIOXIDE 27.8 mmol/L (21-32); CREATININE 0.8 mg/dL (0.6-1.3); TOTAL BILIRUBIN 0.4 mg/dL (0.0-1.0)
--- NOTE | 2020-01-25 23:25 | NUR ---
Dr. Stinson examining patient.
--- NOTE | 2020-01-25 23:30 | NUR ---
PT PROVIDED URINE CUP FOR ENCOURAGEMENT OF URINE SAMPLE. PT AMBULATED TO RESTROOM W/ STEADY GAIT.
[2020-01-25] MEDS ORDERED: INSULIN REGULAR, HUMAN 100 UNIT/ML VIAL IVP ONE (23:35)
[2020-01-25 23:43] LABS: APPEARANCE,URINE CLEAR (CLEAR); BILIRUBIN,URINE NEGATIVE (NEGATIVE); BLOOD, URINE TRACE-I (NEGATIVE); COLOR,URINE YELLOW (YELLOW); LEUKOCYTE ESTERASE ,URINE NEGATIVE (NEGATIVE); NITRITE, URINE NEGATIVE (NEGATIVE); UGLUCOSE 3+ (NEGATIVE)
[2020-01-25 23:55] LABS: RBC,URINE 0-5 /HPF (0-5); WBC,URINE 0-5 /HPF (0-5)
--- NOTE | 2020-01-26 00:07 | NUR ---
Pt medicated per ED MD order.
[2020-01-26] MEDS ORDERED: INSULIN REGULAR, HUMAN 100 UNIT/ML VIAL IVP ONE (01:45)
[2020-01-26 02:07] VITALS: BP 135/84
--- NOTE | 2020-01-26 02:08 | NUR ---
ACI given to pt with verbal understanding. Pt AAOx4, IV lock D/C'd with cath intact and bleeding controlled. Pt ambulated off unit with steady gait and all belongings.
--- NOTE | 2020-01-31 05:52 | NUR ---
late entry---- s/w primary nurse, end times as follow; NS end time: [id number]
== END 2020-01-26 02:08 | disposition home or self-care (01) ==
LOC: MED 21:49
DX: E11.65 Type 2 diabetes mellitus with hyperglycemia (principal); R03.0 Elevated blood-pressure reading, without diagnosis of hypertension; Z90.49 Acquired absence of other specified parts of digestive tract; Z79.4 Long term (current) use of insulin; Z79.899 Other long term (current) drug therapy
CPT/HCPCS: 36415; 80053; 81001; 82948; 83690; 85025; 96361; 96374; 99284; J1815; J7030

== ENCOUNTER 2020-03-05 19:24 | Emergency (ER) | payer OTHER ==
[~2020-03-05] VITALS: Ht 157.5 cm; Wt 59.0 kg
[2020-03-05 19:45] VITALS: BP 103/70
--- NOTE | 2020-03-05 19:48 | NUR ---
TO LOBBY A/W BED AMBULATORY
--- NOTE | 2020-03-05 19:50 | NUR ---
SEEN AND EXAMINED BY PRIYA WITH ORDERS ABD CARRIED OUT
[2020-03-05 20:03] LABS: BASOPHILS % (AUTO) 0.5 % (0.0-2.0); EOSINOPHILS # (AUTO) 0.1 K/uL (0-0.4); EOSINOPHILS % (AUTO) 0.7 % (0.0-4.0); HEMATOCRIT 47.5 % (36-48); HEMOGLOBIN 15.5 g/dL (12.0-16.0); LYMPHOCYTES # (AUTO) 2.7 K/uL (2.5-16.5); LYMPHOCYTES % (AUTO) 30.3 % (20.5-51.1); MEAN CORPUSCULAR HEMOGLOBIN 27 pg (27-31); MEAN CORPUSCULAR HGB CONC 33 g/dL (33-37); MEAN CORPUSCULAR VOLUME 82.2 fL (80-94); MONOCYTES # (AUTO) 0.7 K/uL (0.8-1.0); MONOCYTES % (AUTO) 7.5 % (1.7-9.3); NEUTROPHILS # (AUTO) 5.5 K/uL (1.8-7.7); PLATELET COUNT (AUTO) 246 K/uL (140-450); RED BLOOD CELL COUNT(AUTO) 5.77 MIL/uL (4.20-5.40); RED CELL DISTRIBUTION WIDTH 13.7 % (11.6-13.7)
[2020-03-05 20:52] LABS: ALBUMIN 3.6 g/dL (3.4-5.0); ANION GAP 17.6 (8-16); CARBON DIOXIDE 25.2 mmol/L (21-32); CREATININE 0.9 mg/dL (0.6-1.3); POTASSIUM 3.8 mmol/L (3.5-5.1); TOTAL BILIRUBIN 0.5 mg/dL (0.0-1.0)
[2020-03-05 22:07] LABS: APPEARANCE,URINE CLEAR (CLEAR); BILIRUBIN,URINE 2+ (NEGATIVE); BLOOD, URINE NEGATIVE (NEGATIVE); COLOR,URINE YELLOW (YELLOW); LEUKOCYTE ESTERASE ,URINE NEGATIVE (NEGATIVE); NITRITE, URINE NEGATIVE (NEGATIVE); UGLUCOSE 3+ (NEGATIVE)
[2020-03-05 22:15] LABS: RBC,URINE 0-5 /HPF (0-5); WBC,URINE 0-5 /HPF (0-5)
[2020-03-05] MEDS ORDERED: KETOROLAC 30 MG/ML VIAL IM ONE (23:55)
[2020-03-05] MEDS ORDERED: HYDROcodone/APAP 5/325 MG 1 TAB TAB PO ONE (23:55)
--- NOTE | 2020-03-05 23:55 | NUR ---
MEDICATED PER ERMDS ORDER, TOLERATED WELL.
--- NOTE | 2020-03-06 | NUR ---
ALL RESULTS BACK AND NOTED BY ERMD AND FOR D/C
[2020-03-06 00:30] VITALS: BP 112/76
== END 2020-03-06 00:30 | disposition home or self-care (01) ==
LOC: MED 19:24
DX: R10.84 Generalized abdominal pain (principal); R53.1 Weakness; E11.9 Type 2 diabetes mellitus without complications; Z79.4 Long term (current) use of insulin; Z98.890 Other specified postprocedural states; Z79.899 Other long term (current) drug therapy
CPT/HCPCS: 36415; 74176; 80053; 81001; 81025; 83690; 85025; 87086; 96372; 99284; J1885